=== PATIENT | male | born 1955 | race Two or more races ===

== ENCOUNTER → 2017-02-16 | Outpatient (REF) | payer OTHER ==
[2017-02-16 14:31] LABS: INR 0.98; PROTHROMBIN TIME 13.1 SECONDS (12.4-14.5)
[2017-02-16 15:50] LABS: ALKALINE PHOSPHATASE 150 U/L (45-117); ALT/SGPT 23 U/L (12-78); ANION GAP 17 MEQ/L (8-16); AST/SGOT 23 U/L (7-37); BILIRUBIN,TOTAL 0.2 MG/DL (0.2-1.0); BLOOD UREA NITROGEN 113 MG/DL (7-18); CALCIUM LEVEL 8.1 MG/DL (8.8-10.2); CARBON DIOXIDE LEVEL 20 MEQ/L (21-32); CHLORIDE LEVEL 105 MEQ/L (98-107); CHOLESTEROL LEVEL 291 MG/DL (<200); CREATININE FOR GFR 8.57 MG/DL (0.70-1.30); GLOMERULAR FILTRATION RATE 6.7 (>49); GLUCOSE, FASTING 136 MG/DL (80-110); HDL CHOLESTEROL 36 MG/DL (>40); NON-HDL-C 255 MG/DL; POTASSIUM SERUM 3.5 MEQ/L (3.5-5.1); SODIUM LEVEL 142 MEQ/L (136-145); TRIGLYCERIDES LEVEL 235 MG/DL (<150)
[2017-02-16 15:51] LABS: ALBUMIN 2.1 GM/DL (3.2-5.2); CHOLESTEROL RISK RATIO 8.083 (<5); TOTAL PROTEIN 6.3 GM/DL (6.4-8.2)
[2017-02-16 16:43] LABS: AMORPHOUS SEDIMENT SMALL (NEGATIVE); APPEARANCE, URINE HAZY (CLEAR); BACTERIA, URINE AUTO 1+ (NEGATIVE); BILIRUBIN, URINE AUTO NEGATIVE (NEGATIVE); BLOOD, URINE BLOOD 2+ (NEGATIVE); CALCIUM OXALATE CRYSTALS SMALL; COLOR, URINE YELLOW (YELLOW); GLUCOSE, URINE (UA) AUTO 3+ mg/dL (NEGATIVE); KETONE, URINE AUTO NEGATIVE (NEGATIVE); LEUKOCYTE ESTERASE, URINE AUTO NEGATIVE (NEGATIVE); MUCUS, URINE SMALL (NEGATIVE); NITRITE, URINE AUTO NEGATIVE (NEGATIVE); PROTEIN, URINE AUTO 3+ mg/dL (NEGATIVE); RBC, URINE AUTO 2 /HPF (0-3); SPECIFIC GRAVITY URINE AUTO 1.013 (1.002-1.035); SQUAMOUS EPITHELIAL CELL UR AU 0 /HPF (0-6); UROBILINOGEN, URINE AUTO 0.2 mg/dL (0.0-2.0); WBC, URINE AUTO 3 /HPF (0-3)
[2017-02-16 18:17] LABS: CHLAMYDIA DNA AMPLIFICATION NEGATIVE (NEGATIVE); GC DNA AMPLIFICATION NEGATIVE (NEGATIVE)
[2017-02-16 19:21] LABS: CREATININE, URINE 91.8 MG/DL; MAU/CREAT RATIO 7145.9 MCG/MG (0.0-30.0)
[2017-02-17 17:51] LABS: HEPATITIS B SURFACE ANTIBODY POSITIVE (POSITIVE)
[2017-02-17 18:06] LABS: HEPATITIS C VIRUS ABY INDEX 0.2 INDEX (<0.8)
[2017-02-18 14:10] LABS: QUANTIFERON GOLD TB Negative (Negative); TB Test (QFT) Antigen 0.06 IU/mL (.); TB Test (QFT) Antigen Minus Ni <0.01 IU/mL (.); TB Test (QFT) Mitogen 5.38 IU/mL (.); TB Test (QFT) Nil 0.07 IU/mL (.)
[2017-02-21 00:07] LABS: % CD8 Pos Lymph 40.5 % (12.0-35.5); %CD4 Pos Lymphs 39.1 % (30.8-58.5); ABS Eosinophils 0.2 x10E3/uL (0.0-0.4); ABS Lymphs 1.7 x10E3/uL (0.7-3.1); ABS Monocytes 0.5 x10E3/uL (0.1-0.9); ABS Neutophils 3.4 x10E3/uL (1.4-7.0); Abs CD4 Helper 665 /uL (359-1519); Abs CD8 Suppres 689 /uL (109-897); CD4/CD8 Ratio 0.97 (0.92-3.72); Eosinophils 3 % (Not Estab.); HCT 38.3 % (37.5-51.0); HEPATITIS A IgG TOTAL Positive (Negative); HEPATITIS B CORE ANTIBODY IGG Negative (Negative); HGB 13.6 g/dL (13.0-17.7); HIV-1 RNA PCR QUANT 2 LC550285 144860 copies/mL (.); HIV-1 RNA PCR QUANT 3 LC550285 5.161 (.); Immature Grans 0 % (Not Estab.); Lymphocytes 29 % (Not Estab.); MCH 29.9 pg (26.6-33.0); MCHC 35.5 g/dL (31.5-35.7); MCV 84 fL (79-97); Monocytes 9 % (Not Estab.); Neutrophils 58 % (Not Estab.); Platelets 273 x10E3/uL (150-379); RBC 4.55 x10E6/uL (4.14-5.80); RDW 13.7 % (12.3-15.4); WBC 5.8 x10E3/uL (3.4-10.8)
== END ==
LOC: M SFHCPLAZ 11:12
DX: B20 Human immunodeficiency virus [HIV] disease (principal); E10.22 Type 1 diabetes mellitus with diabetic chronic kidney disease; I48.3 Typical atrial flutter

== ENCOUNTER → 2017-02-20 | Outpatient (REF) | payer MEDICAID, SELFPAY ==
[2017-02-20 14:22] LABS: HEPATITIS B SURFACE ANTIBODY POSITIVE (POSITIVE)
[2017-02-20 14:29] LABS: HEPATITIS B SURFACE ANTIGEN NEGATIVE (NEGATIVE)
[2017-02-20 14:52] LABS: HEPATITIS C VIRUS ABY INDEX 0.2 INDEX (<0.8)
[2017-02-20 14:53] LABS: HEPATITIS B CORE ANTIBODY IGM NEGATIVE (NEGATIVE)
[2017-02-21 08:06] LABS: HEPATITIS B CORE ANTIBODY IGG Negative (Negative)
== END ==
LOC: M LAB REF 13:09
DX: N18.5 Chronic kidney disease, stage 5 (principal); E11.22 Type 2 diabetes mellitus with diabetic chronic kidney disease; N25.81 Secondary hyperparathyroidism of renal origin
CPT/HCPCS: 86706

== ENCOUNTER 2017-02-24 17:55 | Inpatient (IN) | payer MEDICAID, SELFPAY ==
[2017-02-24 19:17] LABS: KETONE, URINE AUTO RFX TRACE mg/dL (NEGATIVE); LEUKOCYTE ESTERASE UR AUTO RFX NEGATIVE (NEGATIVE); NITRITE, URINE AUTO RFX NEGATIVE (NEGATIVE); RBC, URINE AUTO RFX 8 /HPF (0-3); SPECIFIC GRAVITY UR AUTO RFX 1.015 (1.002-1.035); SQUAM EPITHELIAL CELL UR AURFX 0 /HPF (0-6); WBC, URINE AUTO RFX 4 /HPF (0-3)
[2017-02-24 19:25] LABS: BASO % 0.4 % (0.0-1.0); EOS # 0.1 10^3/uL (0.0-0.50); EOS % 0.6 % (0.0-3.0); HEMATOCRIT 42.5 % (42.0-52.0); HEMOGLOBIN 14.8 g/dl (14.0-18.0); IMMATURE GRANULOCYTE % 0.2 % (0-0); LYMPH % 12.3 % (24.0-44.0); MEAN CORPUSCULAR HEMOGLOBIN 29.2 pg (27.0-33.0); MEAN CORPUSCULAR HGB CONC 34.8 g/dl (32.0-36.5); MONO # 0.6 10^3/uL (0.0-0.8); MONO % 6.9 % (0.0-5.0); NEUTROPHILS # 6.7 10^3/uL (1.8-7.7); NEUTROPHILS % 79.6 % (36.0-66.0); PLATELET COUNT, AUTOMATED 300 10^3/uL (150-450); RED BLOOD COUNT 5.06 10^6/uL (4.30-6.10); RED CELL DISTRIBUTION WIDTH 13.2 % (11.5-14.5); WHITE BLOOD COUNT 8.5 10^3/uL (4.0-10.0)
[2017-02-24 19:35] LABS: INR 2.47; PROTHROMBIN TIME 27.7 SECONDS (12.4-14.5)
[2017-02-24 19:36] LABS: PARTIAL THROMBOPLASTIN TIME 50.3 SECONDS (26.8-37.9)
[2017-02-24 19:48] LABS: ALBUMIN 2.3 GM/DL (3.2-5.2); ALBUMIN/GLOBULIN RATIO 0.47 (1.00-1.93); ALKALINE PHOSPHATASE 143 U/L (45-117); ALT/SGPT 28 U/L (12-78); ANION GAP 13 MEQ/L (8-16); AST/SGOT 24 U/L (7-37); BILIRUBIN,DIRECT < 0.1 MG/DL (0.0-0.2); BILIRUBIN,TOTAL 0.3 MG/DL (0.2-1.0); BLOOD UREA NITROGEN 113 MG/DL (7-18); CALCIUM LEVEL 7.8 MG/DL (8.8-10.2); CARBON DIOXIDE LEVEL 23 MEQ/L (21-32); CHLORIDE LEVEL 104 MEQ/L (98-107); CK-MB VALUE MASS 15.2 NG/ML (0.0-3.6); CPK CREATINE PHOSPHOKINASE 303 U/L (39-308); CREATININE FOR GFR 8.88 MG/DL (0.70-1.30); GLOMERULAR FILTRATION RATE 6.5 (>49); GLUCOSE, FASTING 271 MG/DL (80-110); LIPASE 268 U/L (73-393); MAGNESIUM LEVEL 1.8 MG/DL (1.8-2.4); MB/CK RELATIVE INDEX 5.01 (< OR =4); PHOSPHORUS LEVEL 8.3 MG/DL (2.5-4.9); POTASSIUM SERUM 3.1 MEQ/L (3.5-5.1); SODIUM LEVEL 140 MEQ/L (136-145); TOTAL PROTEIN 7.2 GM/DL (6.4-8.2); TROPONIN I 0.05 NG/ML (< 0.10)
[2017-02-24] MEDS: ONDANSETRON 4MG/2ML VIAL (J2405) IV (20:13)
[2017-02-24] MEDS: MORPHINE 4 MG/ML 1ML VIAL (J2270) IV (20:34)
[2017-02-24] MEDS ORDERED: ONDANSETRON 4MG/2ML VIAL (J2405) IV (22:15)
[2017-02-24] MEDS ORDERED: GLUCOSE 4 GM CHEW TABLET PO (22:15)
[2017-02-24] MEDS ORDERED: BISACODYL 5 MG TAB PO (22:15)
[2017-02-24] MEDS ORDERED: COLCHICINE 0.6 MG TAB PO (22:15)
[2017-02-24] MEDS ORDERED: GLUCAGON FOR INJ 1 MG VIAL (J1610) SC (22:15)
[2017-02-25] MEDS: MORPHINE 2 MG/ML 1ML SYRINGE (J2270) IV ×6 (00:27→23:14)
[2017-02-25] MEDS: SENOKOT S TAB PO ×3 (00:57→21:28)
[2017-02-25 00:58] LABS: BEDSIDE GLUCOSE 127 MG/DL (80-115)
[2017-02-25] MEDS: amLODIPine 5 MG TAB PO ×2 (00:58→08:42)
[2017-02-25] MEDS: POTASSIUM CHLORIDE 10 MEQ SR TABLET PO ×2 (00:59→08:41)
[2017-02-25] MEDS: HumaLOG INSULIN (NovoLOG) PER UNIT SC ×4 (06:00→18:52)
[2017-02-25 06:20] LABS: BEDSIDE GLUCOSE 121 MG/DL (80-115)
[2017-02-25 07:18] LABS: BASO % 0.4 % (0.0-1.0); EOS # 0.2 10^3/uL (0.0-0.50); EOS % 2.8 % (0.0-3.0); HEMATOCRIT 34.6 % (42.0-52.0); IMMATURE GRANULOCYTE % 0.4 % (0-0); LYMPH # 1.9 10^3/uL (1.5-4.5); LYMPH % 24.6 % (24.0-44.0); MEAN CORPUSCULAR HEMOGLOBIN 29.4 pg (27.0-33.0); MEAN CORPUSCULAR VOLUME 84.2 fl (80.0-96.0); MONO # 0.7 10^3/uL (0.0-0.8); MONO % 9.1 % (0.0-5.0); NEUTROPHILS # 4.7 10^3/uL (1.8-7.7); NEUTROPHILS % 62.7 % (36.0-66.0); PLATELET COUNT, AUTOMATED 237 10^3/uL (150-450); RED BLOOD COUNT 4.11 10^6/uL (4.30-6.10); RED CELL DISTRIBUTION WIDTH 13.2 % (11.5-14.5); WHITE BLOOD COUNT 7.6 10^3/uL (4.0-10.0)
[2017-02-25 07:24] LABS: HEMOGLOBIN 12.1 g/dl (14.0-18.0)
[2017-02-25 07:28] LABS: INR 2.91; PROTHROMBIN TIME 31.7 SECONDS (12.4-14.5)
[2017-02-25 07:53] LABS: ANION GAP 15 MEQ/L (8-16); BLOOD UREA NITROGEN 113 MG/DL (7-18); CALCIUM LEVEL 7.5 MG/DL (8.8-10.2); CARBON DIOXIDE LEVEL 19 MEQ/L (21-32); CHLORIDE LEVEL 108 MEQ/L (98-107); CREATININE FOR GFR 8.75 MG/DL (0.70-1.30); GLOMERULAR FILTRATION RATE 6.6 (>49); GLUCOSE, FASTING 112 MG/DL (80-110); MAGNESIUM LEVEL 1.8 MG/DL (1.8-2.4); PHOSPHORUS LEVEL 8.2 MG/DL (2.5-4.9); POTASSIUM SERUM 3.1 MEQ/L (3.5-5.1); SODIUM LEVEL 142 MEQ/L (136-145)
[2017-02-25] MEDS: MULTIVITAMINS/MINERALS THERAP 1 TAB PO (08:42)
[2017-02-25] MEDS ORDERED: ALLOPURINOL 100 MG TAB PO (09:00)
[2017-02-25] MEDS: METOPROLOL SUCC (TopROL XL) 100MG *XL* TAB PO (09:00)
[2017-02-25] MEDS: ACETAMINOPHEN TAB 650MG DOSE (2X325MG) PO (11:38)
[2017-02-25 13:04] LABS: BEDSIDE GLUCOSE 101 MG/DL (80-115)
[2017-02-25] MEDS ORDERED: fentaNYL 100 MCG/2 ML INJECTION (J3010) As Ordered (15:34)
[2017-02-25] MEDS ORDERED: MIDAZOLAM INJ 2 MG/2 ML VIAL (J2250) As Ordered (15:34)
[2017-02-25] MEDS: HEPARIN SOD (PORCINE) 5000 UNITS/ML VIAL As Ordered (16:31)
[2017-02-25] MEDS: BUPIVACAINE HCL 0.5% 30 ML VIAL As Ordered (16:31)
[2017-02-25] MEDS: LIDOCAINE 1% SDV INJ 30 ML VIAL As Ordered (16:31)
[2017-02-25] MEDS ORDERED: PROPOFOL 200 MG/20 ML VIAL As Ordered (16:33)
[2017-02-25] MEDS ORDERED: ONDANSETRON 4MG/2ML VIAL (J2405) IV (17:30)
[2017-02-25] MEDS ORDERED: LR 1,000 ML IV (17:30)
[2017-02-25] MEDS ORDERED: NORCO, ANEXSIA 5/325MG TABLET (HYDROcodone/ACETAMINOPHEN) PO (17:30)
[2017-02-25] MEDS: FEBUXOSTAT 40 MG TABLET (ULORIC) PO (18:18)
[2017-02-25] MEDS: KCL 20MEQ in NS 1000ML 1,000 ML IV (18:19)
[2017-02-25 18:34] LABS: BEDSIDE GLUCOSE 122 MG/DL (80-115)
[2017-02-25 18:45] LABS: BEDSIDE GLUCOSE 76 MG/DL (80-115)
[2017-02-26 00:04] LABS: BEDSIDE GLUCOSE 68 MG/DL (80-115)
[2017-02-26] MEDS: DEXTROSE 50% 50 ML SYRINGE IV (00:22)
[2017-02-26] MEDS: KCL 20MEQ in NS 1000ML 1,000 ML IV ×2 (02:21→13:56)
[2017-02-26 02:30] LABS: BEDSIDE GLUCOSE 93 MG/DL (80-115)
[2017-02-26] MEDS: MORPHINE 2 MG/ML 1ML SYRINGE (J2270) IV ×3 (03:38→20:54)
[2017-02-26] MEDS: HumaLOG INSULIN (NovoLOG) PER UNIT SC ×5 (06:00→18:00)
[2017-02-26 06:09] LABS: BASO % 0.4 % (0.0-1.0); EOS # 0.1 10^3/uL (0.0-0.50); EOS % 1.3 % (0.0-3.0); HEMATOCRIT 34.6 % (42.0-52.0); HEMOGLOBIN 11.8 g/dl (14.0-18.0); IMMATURE GRANULOCYTE % 0.4 % (0-0); LYMPH # 1.5 10^3/uL (1.5-4.5); LYMPH % 20.8 % (24.0-44.0); MEAN CORPUSCULAR HEMOGLOBIN 29.6 pg (27.0-33.0); MEAN CORPUSCULAR HGB CONC 34.1 g/dl (32.0-36.5); MEAN CORPUSCULAR VOLUME 86.9 fl (80.0-96.0); MONO # 0.6 10^3/uL (0.0-0.8); MONO % 8.7 % (0.0-5.0); NEUTROPHILS # 4.8 10^3/uL (1.8-7.7); NEUTROPHILS % 68.4 % (36.0-66.0); PLATELET COUNT, AUTOMATED 205 10^3/uL (150-450); RED BLOOD COUNT 3.98 10^6/uL (4.30-6.10); RED CELL DISTRIBUTION WIDTH 13.5 % (11.5-14.5)
[2017-02-26 06:19] LABS: INR 2.78; PROTHROMBIN TIME 30.5 SECONDS (12.4-14.5)
[2017-02-26 06:26] LABS: ANION GAP 14 MEQ/L (8-16); BLOOD UREA NITROGEN 116 MG/DL (7-18); CALCIUM LEVEL 7.5 MG/DL (8.8-10.2); CARBON DIOXIDE LEVEL 17 MEQ/L (21-32); CHLORIDE LEVEL 111 MEQ/L (98-107); CREATININE FOR GFR 9.35 MG/DL (0.70-1.30); GLOMERULAR FILTRATION RATE 6.1 (>49); GLUCOSE, FASTING 71 MG/DL (80-110); MAGNESIUM LEVEL 1.8 MG/DL (1.8-2.4); PHOSPHORUS LEVEL 8.3 MG/DL (2.5-4.9); POTASSIUM SERUM 3.6 MEQ/L (3.5-5.1); SODIUM LEVEL 142 MEQ/L (136-145)
[2017-02-26 06:56] LABS: BEDSIDE GLUCOSE 106 MG/DL (80-115)
[2017-02-26] MEDS: FEBUXOSTAT 40 MG TABLET (ULORIC) PO (08:49)
[2017-02-26] MEDS: SENOKOT S TAB PO ×2 (08:49→20:55)
[2017-02-26] MEDS: MULTIVITAMINS/MINERALS THERAP 1 TAB PO (08:50)
[2017-02-26] MEDS: METOPROLOL SUCC (TopROL XL) 100MG *XL* TAB PO (08:50)
[2017-02-26] MEDS: amLODIPine 5 MG TAB PO (08:51)
[2017-02-26 12:14] LABS: BEDSIDE GLUCOSE 89 MG/DL (80-115)
[2017-02-26 17:41] LABS: BEDSIDE GLUCOSE 70 MG/DL (80-115)
[2017-02-26] MEDS: KCL 20MEQ IN D5/0.45NS 1000ML 1,000 ML IV ×2 (18:00→20:54)
[2017-02-26] MEDS: WARFARIN SOD 5 MG TAB PO (18:19)
[2017-02-26 23:43] LABS: BEDSIDE GLUCOSE 79 MG/DL (80-115)
[2017-02-27] MEDS: MORPHINE 2 MG/ML 1ML SYRINGE (J2270) IV ×2 (03:12→23:11)
[2017-02-27] MEDS: HumaLOG INSULIN (NovoLOG) PER UNIT SC ×4 (06:00→18:00)
[2017-02-27 06:11] LABS: BEDSIDE GLUCOSE 88 MG/DL (80-115)
[2017-02-27] MEDS: FEBUXOSTAT 40 MG TABLET (ULORIC) PO (06:19)
[2017-02-27] MEDS: amLODIPine 5 MG TAB PO (06:20)
[2017-02-27] MEDS: SENOKOT S TAB PO ×2 (06:20→20:33)
[2017-02-27] MEDS: MULTIVITAMINS/MINERALS THERAP 1 TAB PO (06:20)
[2017-02-27] MEDS: METOPROLOL SUCC (TopROL XL) 100MG *XL* TAB PO (06:21)
[2017-02-27 07:02] LABS: BASO % 0.3 % (0.0-1.0); EOS # 0.1 10^3/uL (0.0-0.50); EOS % 2.2 % (0.0-3.0); HEMOGLOBIN 12.3 g/dl (14.0-18.0); IMMATURE GRANULOCYTE % 0.3 % (0-0); LYMPH # 1.3 10^3/uL (1.5-4.5); LYMPH % 19.4 % (24.0-44.0); MEAN CORPUSCULAR HEMOGLOBIN 29.6 pg (27.0-33.0); MEAN CORPUSCULAR HGB CONC 34.2 g/dl (32.0-36.5); MEAN CORPUSCULAR VOLUME 86.5 fl (80.0-96.0); MONO # 0.8 10^3/uL (0.0-0.8); MONO % 12.9 % (0.0-5.0); NEUTROPHILS # 4.2 10^3/uL (1.8-7.7); NEUTROPHILS % 64.9 % (36.0-66.0); PLATELET COUNT, AUTOMATED 214 10^3/uL (150-450); RED BLOOD COUNT 4.16 10^6/uL (4.30-6.10); RED CELL DISTRIBUTION WIDTH 13.8 % (11.5-14.5); WHITE BLOOD COUNT 6.4 10^3/uL (4.0-10.0)
[2017-02-27 07:15] LABS: INR 2.47; PROTHROMBIN TIME 27.7 SECONDS (12.4-14.5)
[2017-02-27 07:30] LABS: ANION GAP 15 MEQ/L (8-16); BLOOD UREA NITROGEN 115 MG/DL (7-18); CALCIUM LEVEL 7.9 MG/DL (8.8-10.2); CARBON DIOXIDE LEVEL 18 MEQ/L (21-32); CHLORIDE LEVEL 113 MEQ/L (98-107); GLOMERULAR FILTRATION RATE 5.5 (>49); GLUCOSE, FASTING 88 MG/DL (80-110); PHOSPHORUS LEVEL 8.5 MG/DL (2.5-4.9); POTASSIUM SERUM 3.8 MEQ/L (3.5-5.1); SODIUM LEVEL 146 MEQ/L (136-145)
[2017-02-27] MEDS: KCL 20MEQ IN D5/0.45NS 1000ML 1,000 ML IV (08:33)
[2017-02-27] MEDS: HEPARIN 1,000 UNITS/ML 10ML VIAL (FOR RADIOLOGY& DIALYSIS ONLY) IV (12:15)
[2017-02-27 13:04] LABS: HEPATITIS B SURFACE ANTIBODY POSITIVE (POSITIVE)
[2017-02-27 13:15] LABS: HEPATITIS B SURFACE ANTIGEN NEGATIVE (NEGATIVE)
[2017-02-27 13:41] LABS: BEDSIDE GLUCOSE 97 MG/DL (80-115)
[2017-02-27 13:43] LABS: HEPATITIS B CORE ANTIBODY IGM NEGATIVE (NEGATIVE); HEPATITIS C VIRUS ABY INDEX < 0.0 INDEX (<0.8)
[2017-02-27 18:09] LABS: BEDSIDE GLUCOSE 109 MG/DL (80-115)
[2017-02-27] MEDS: WARFARIN SOD 5 MG TAB PO (18:20)
[2017-02-28 00:31] LABS: BEDSIDE GLUCOSE 120 MG/DL (80-115)
[2017-02-28] MEDS: HumaLOG INSULIN (NovoLOG) PER UNIT SC ×5 (06:00→23:59)
[2017-02-28 06:02] LABS: BEDSIDE GLUCOSE 123 MG/DL (80-115)
[2017-02-28 06:55] LABS: BASO % 0.5 % (0.0-1.0); EOS # 0.1 10^3/uL (0.0-0.50); EOS % 0.9 % (0.0-3.0); HEMATOCRIT 35.5 % (42.0-52.0); HEMOGLOBIN 12.2 g/dl (14.0-18.0); IMMATURE GRANULOCYTE % 0.2 % (0-0); LYMPH % 14.7 % (24.0-44.0); MEAN CORPUSCULAR HEMOGLOBIN 29.6 pg (27.0-33.0); MEAN CORPUSCULAR HGB CONC 34.4 g/dl (32.0-36.5); MEAN CORPUSCULAR VOLUME 86.2 fl (80.0-96.0); MONO % 14.8 % (0.0-5.0); NEUTROPHILS # 4.5 10^3/uL (1.8-7.7); NEUTROPHILS % 68.9 % (36.0-66.0); PLATELET COUNT, AUTOMATED 188 10^3/uL (150-450); RED BLOOD COUNT 4.12 10^6/uL (4.30-6.10); RED CELL DISTRIBUTION WIDTH 13.7 % (11.5-14.5); WHITE BLOOD COUNT 6.5 10^3/uL (4.0-10.0)
[2017-02-28 07:03] LABS: ANION GAP 10 MEQ/L (8-16); BLOOD UREA NITROGEN 74 MG/DL (7-18); CALCIUM LEVEL 7.6 MG/DL (8.8-10.2); CARBON DIOXIDE LEVEL 23 MEQ/L (21-32); CHLORIDE LEVEL 110 MEQ/L (98-107); CREATININE FOR GFR 7.88 MG/DL (0.70-1.30); GLOMERULAR FILTRATION RATE 7.4 (>49); GLUCOSE, FASTING 134 MG/DL (70-100); MAGNESIUM LEVEL 1.8 MG/DL (1.8-2.4); PHOSPHORUS LEVEL 6.1 MG/DL (2.5-4.9); POTASSIUM SERUM 3.5 MEQ/L (3.5-5.1); SODIUM LEVEL 143 MEQ/L (136-145)
[2017-02-28 07:05] LABS: INR 2.31; PROTHROMBIN TIME 26.3 SECONDS (12.4-14.5)
[2017-02-28 08:17] LABS: HEPATITIS B CORE ANTIBODY IGG Negative (Negative)
[2017-02-28] MEDS: FEBUXOSTAT 40 MG TABLET (ULORIC) PO (09:26)
[2017-02-28] MEDS: METOPROLOL SUCC (TopROL XL) 100MG *XL* TAB PO (09:26)
[2017-02-28] MEDS: amLODIPine 5 MG TAB PO (09:27)
[2017-02-28] MEDS: KCL 20MEQ IN D5/0.45NS 1000ML 1,000 ML IV ×2 (12:42→20:00)
[2017-02-28 13:23] LABS: BEDSIDE GLUCOSE 123 MG/DL (80-115)
[2017-02-28] MEDS: HEPARIN 1,000 UNITS/ML 10ML VIAL (FOR RADIOLOGY& DIALYSIS ONLY) IV (14:30)
[2017-02-28 15:09] LABS: ABO/RH TYPE(VISION) 1 1
[2017-02-28] MEDS: MORPHINE 2 MG/ML 1ML SYRINGE (J2270) IV (18:01)
[2017-02-28 18:23] LABS: INR 1.66; PROTHROMBIN TIME 20.1 SECONDS (12.4-14.5)
[2017-02-28 18:33] LABS: BEDSIDE GLUCOSE 101 MG/DL (80-115)
[2017-02-28] MEDS ORDERED: ERTAPENEM 1 GM INJ (INVanz) (J1335) As Ordered (19:35)
[2017-02-28] MEDS: BUPIVACAINE HCL 0.25% 30 ML VIAL As Ordered (19:38)
[2017-02-28] MEDS ORDERED: GLYCOPYRROLATE INJ 0.2 MG/ML 2 ML VIAL As Ordered ×2 (21:29→21:30)
[2017-02-28] MEDS ORDERED: NEOSTIGMINE 10 MG/10 ML VIAL (J2710) As Ordered (21:30)
[2017-02-28] MEDS ORDERED: PROPOFOL 200 MG/20 ML VIAL As Ordered (21:33)
[2017-02-28] MEDS ORDERED: ePHEDrine INJ 50 MG/ML VIAL As Ordered (21:33)
[2017-02-28] MEDS ORDERED: dexameTHASONE 4 MG/ML 1ML VIAL (J1100) As Ordered (21:33)
[2017-02-28] MEDS ORDERED: fentaNYL 250 MCG/5 ML INJECTION (J3010) As Ordered (21:33)
[2017-02-28] MEDS ORDERED: MIDAZOLAM INJ 2 MG/2 ML VIAL (J2250) As Ordered (21:33)
[2017-02-28] MEDS ORDERED: LIDOCAINE 2% INJ 100 MG/5 ML SDV (FOR ANES.) As Ordered (21:33)
[2017-02-28] MEDS ORDERED: PHENYLEPHRINE INJ 10MG/ML VIAL (J2370) As Ordered (21:34)
[2017-02-28] MEDS ORDERED: ESMOLOL INJ 100MG/10ML VIAL As Ordered (21:43)
[2017-02-28] MEDS ORDERED: NORCO, ANEXSIA 5/325MG TABLET (HYDROcodone/ACETAMINOPHEN) PO (22:00)
[2017-02-28] MEDS ORDERED: ONDANSETRON 4MG/2ML VIAL (J2405) IV (22:15)
[2017-02-28] MEDS ORDERED: fentaNYL 100 MCG/2 ML INJECTION (J3010) IV (22:15)
[2017-02-28] MEDS ORDERED: KCL 20MEQ IN D5/.45NACL 1000ML As Ordered (23:01)
[2017-02-28 23:13] LABS: BEDSIDE GLUCOSE 110 MG/DL (80-115)
[2017-02-28 23:58] LABS: BEDSIDE GLUCOSE 116 MG/DL (80-115)
[2017-03-01] MEDS: HumaLOG INSULIN (NovoLOG) PER UNIT SC ×4 (06:04→21:19)
[2017-03-01 06:09] LABS: BEDSIDE GLUCOSE 183 MG/DL (80-115)
[2017-03-01 07:10] LABS: BASO % 0.2 % (0.0-1.0); HEMATOCRIT 34.3 % (42.0-52.0); HEMOGLOBIN 11.5 g/dl (14.0-18.0); IMMATURE GRANULOCYTE % 0.2 % (0-0); LYMPH # 0.4 10^3/uL (1.5-4.5); LYMPH % 9.4 % (24.0-44.0); MEAN CORPUSCULAR HEMOGLOBIN 29.5 pg (27.0-33.0); MEAN CORPUSCULAR HGB CONC 33.5 g/dl (32.0-36.5); MEAN CORPUSCULAR VOLUME 87.9 fl (80.0-96.0); MONO # 0.2 10^3/uL (0.0-0.8); MONO % 3.7 % (0.0-5.0); NEUTROPHILS # 3.8 10^3/uL (1.8-7.7); NEUTROPHILS % 86.5 % (36.0-66.0); PLATELET COUNT, AUTOMATED 182 10^3/uL (150-450); RED CELL DISTRIBUTION WIDTH 13.5 % (11.5-14.5); WHITE BLOOD COUNT 4.4 10^3/uL (4.0-10.0)
[2017-03-01 07:22] LABS: INR 1.71; PROTHROMBIN TIME 20.6 SECONDS (12.4-14.5)
[2017-03-01 07:29] LABS: ANION GAP 11 MEQ/L (8-16); BLOOD UREA NITROGEN 48 MG/DL (7-18); CALCIUM LEVEL 8.1 MG/DL (8.8-10.2); CARBON DIOXIDE LEVEL 22 MEQ/L (21-32); CHLORIDE LEVEL 108 MEQ/L (98-107); CREATININE FOR GFR 5.77 MG/DL (0.70-1.30); GLOMERULAR FILTRATION RATE 10.6 (>49); GLUCOSE, FASTING 193 MG/DL (70-100); MAGNESIUM LEVEL 1.9 MG/DL (1.8-2.4); PHOSPHORUS LEVEL 6.9 MG/DL (2.5-4.9); SODIUM LEVEL 141 MEQ/L (136-145)
[2017-03-01] MEDS: FEBUXOSTAT 40 MG TABLET (ULORIC) PO (08:57)
[2017-03-01] MEDS: amLODIPine 5 MG TAB PO (08:58)
[2017-03-01] MEDS: METOPROLOL SUCC (TopROL XL) 100MG *XL* TAB PO (08:58)
[2017-03-01 12:02] LABS: BEDSIDE GLUCOSE 276 MG/DL (80-115)
[2017-03-01 16:45] LABS: BEDSIDE GLUCOSE 220 MG/DL (80-115)
[2017-03-01] MEDS: WARFARIN SOD 3 MG TAB PO (17:10)
[2017-03-01 20:41] LABS: BEDSIDE GLUCOSE 280 MG/DL (80-115)
[2017-03-02 06:11] LABS: BEDSIDE GLUCOSE 215 MG/DL (80-115)
[2017-03-02] MEDS: FEBUXOSTAT 40 MG TABLET (ULORIC) PO (06:22)
[2017-03-02] MEDS: HumaLOG INSULIN (NovoLOG) PER UNIT SC ×4 (07:30→21:00)
[2017-03-02] MEDS: METOPROLOL SUCC (TopROL XL) 100MG *XL* TAB PO (07:44)
[2017-03-02] MEDS: amLODIPine 5 MG TAB PO (08:16)
[2017-03-02 11:20] LABS: BASO % 0.2 % (0.0-1.0); EOS # 0.2 10^3/uL (0.0-0.50); EOS % 2.7 % (0.0-3.0); HEMATOCRIT 32.3 % (42.0-52.0); HEMOGLOBIN 10.9 g/dl (14.0-18.0); IMMATURE GRANULOCYTE % 0.2 % (0-0); LYMPH # 1.3 10^3/uL (1.5-4.5); LYMPH % 21.8 % (24.0-44.0); MEAN CORPUSCULAR HEMOGLOBIN 29.2 pg (27.0-33.0); MEAN CORPUSCULAR HGB CONC 33.7 g/dl (32.0-36.5); MEAN CORPUSCULAR VOLUME 86.6 fl (80.0-96.0); MONO # 0.8 10^3/uL (0.0-0.8); MONO % 13.3 % (0.0-5.0); NEUTROPHILS # 3.7 10^3/uL (1.8-7.7); NEUTROPHILS % 61.8 % (36.0-66.0); PLATELET COUNT, AUTOMATED 198 10^3/uL (150-450); RED BLOOD COUNT 3.73 10^6/uL (4.30-6.10); RED CELL DISTRIBUTION WIDTH 13.3 % (11.5-14.5); WHITE BLOOD COUNT 5.9 10^3/uL (4.0-10.0)
[2017-03-02 11:33] LABS: INR 1.87; PROTHROMBIN TIME 22.1 SECONDS (12.4-14.5)
[2017-03-02 11:42] LABS: ANION GAP 7 MEQ/L (8-16); BLOOD UREA NITROGEN 40 MG/DL (7-18); CALCIUM LEVEL 8.4 MG/DL (8.8-10.2); CARBON DIOXIDE LEVEL 30 MEQ/L (21-32); CHLORIDE LEVEL 103 MEQ/L (98-107); CREATININE FOR GFR 3.96 MG/DL (0.70-1.30); GLOMERULAR FILTRATION RATE 16.4 (>49); GLUCOSE, FASTING 139 MG/DL (70-100); MAGNESIUM LEVEL 1.9 MG/DL (1.8-2.4); POTASSIUM SERUM 3.5 MEQ/L (3.5-5.1); SODIUM LEVEL 140 MEQ/L (136-145)
[2017-03-02] MEDS: HEPARIN 1,000 UNITS/ML 10ML VIAL (FOR RADIOLOGY& DIALYSIS ONLY) XX (11:45)
[2017-03-02] MEDS: HEPARIN 1,000 UNITS/ML 10ML VIAL (FOR RADIOLOGY& DIALYSIS ONLY) IV (11:45)
[2017-03-02 13:28] LABS: BEDSIDE GLUCOSE 162 MG/DL (80-115)
[2017-03-02] MEDS: WARFARIN SOD 5 MG TAB PO (16:45)
[2017-03-02 16:50] LABS: BEDSIDE GLUCOSE 173 MG/DL (80-115)
[2017-03-02 23:00] LABS: BEDSIDE GLUCOSE 149 MG/DL (80-115)
[2017-03-03 07:22] LABS: BASO % 0.2 % (0.0-1.0); EOS # 0.2 10^3/uL (0.0-0.50); EOS % 3.1 % (0.0-3.0); HEMATOCRIT 31.1 % (42.0-52.0); HEMOGLOBIN 10.3 g/dl (14.0-18.0); IMMATURE GRANULOCYTE % 0.3 % (0-0); LYMPH # 1.3 10^3/uL (1.5-4.5); LYMPH % 22.9 % (24.0-44.0); MEAN CORPUSCULAR HEMOGLOBIN 29.1 pg (27.0-33.0); MEAN CORPUSCULAR HGB CONC 33.1 g/dl (32.0-36.5); MEAN CORPUSCULAR VOLUME 87.9 fl (80.0-96.0); MONO # 0.8 10^3/uL (0.0-0.8); MONO % 14.3 % (0.0-5.0); NEUTROPHILS # 3.4 10^3/uL (1.8-7.7); NEUTROPHILS % 59.2 % (36.0-66.0); PLATELET COUNT, AUTOMATED 185 10^3/uL (150-450); RED BLOOD COUNT 3.54 10^6/uL (4.30-6.10); RED CELL DISTRIBUTION WIDTH 13.2 % (11.5-14.5); WHITE BLOOD COUNT 5.8 10^3/uL (4.0-10.0)
[2017-03-03 07:32] LABS: ANION GAP 7 MEQ/L (8-16); BLOOD UREA NITROGEN 46 MG/DL (7-18); CALCIUM LEVEL 7.6 MG/DL (8.8-10.2); CARBON DIOXIDE LEVEL 26 MEQ/L (21-32); CHLORIDE LEVEL 106 MEQ/L (98-107); CREATININE FOR GFR 5.29 MG/DL (0.70-1.30); GLOMERULAR FILTRATION RATE 11.8 (>49); GLUCOSE, FASTING 156 MG/DL (70-100); INR 2.38; MAGNESIUM LEVEL 1.8 MG/DL (1.8-2.4); PHOSPHORUS LEVEL 4.2 MG/DL (2.5-4.9); POTASSIUM SERUM 3.5 MEQ/L (3.5-5.1); PROTHROMBIN TIME 26.9 SECONDS (12.4-14.5); SODIUM LEVEL 139 MEQ/L (136-145)
[2017-03-03] MEDS: HumaLOG INSULIN (NovoLOG) PER UNIT SC ×4 (08:11→21:00)
[2017-03-03] MEDS: FEBUXOSTAT 40 MG TABLET (ULORIC) PO (08:12)
[2017-03-03] MEDS: METOPROLOL SUCC (TopROL XL) 100MG *XL* TAB PO (08:12)
[2017-03-03] MEDS: amLODIPine 5 MG TAB PO (08:12)
[2017-03-03 11:45] LABS: BEDSIDE GLUCOSE 120 MG/DL (80-115)
[2017-03-03 16:25] LABS: BEDSIDE GLUCOSE 119 MG/DL (80-115)
[2017-03-03] MEDS: WARFARIN SOD 5 MG TAB PO (17:36)
[2017-03-03] MEDS ORDERED: DARBEPOETIN 100 MCG/0.5 ML *DIALYSIS* SYRINGE (J0882) IV (18:45)
[2017-03-03 20:48] LABS: BEDSIDE GLUCOSE 198 MG/DL (80-115)
[2017-03-04 05:33] LABS: BEDSIDE GLUCOSE 132 MG/DL (80-115)
[2017-03-04] MEDS: amLODIPine 5 MG TAB PO (06:15)
[2017-03-04] MEDS: FEBUXOSTAT 40 MG TABLET (ULORIC) PO (06:15)
[2017-03-04] MEDS: METOPROLOL SUCC (TopROL XL) 100MG *XL* TAB PO (06:16)
[2017-03-04] MEDS: HumaLOG INSULIN (NovoLOG) PER UNIT SC ×4 (07:30→20:45)
[2017-03-04 08:31] LABS: MEAN CORPUSCULAR HEMOGLOBIN 29.2 pg (27.0-33.0); MEAN CORPUSCULAR HGB CONC 33.3 g/dl (32.0-36.5); MEAN CORPUSCULAR VOLUME 87.5 fl (80.0-96.0); PLATELET COUNT, AUTOMATED 188 10^3/uL (150-450); RED BLOOD COUNT 3.77 10^6/uL (4.30-6.10)
[2017-03-04 08:52] LABS: ANION GAP 10 MEQ/L (8-16); BLOOD UREA NITROGEN 62 MG/DL (7-18); CALCIUM LEVEL 7.5 MG/DL (8.8-10.2); CARBON DIOXIDE LEVEL 24 MEQ/L (21-32); CHLORIDE LEVEL 104 MEQ/L (98-107); CREATININE FOR GFR 6.43 MG/DL (0.70-1.30); GLOMERULAR FILTRATION RATE 9.4 (>49); GLUCOSE, FASTING 137 MG/DL (70-100); MAGNESIUM LEVEL 1.8 MG/DL (1.8-2.4); POTASSIUM SERUM 3.7 MEQ/L (3.5-5.1); SODIUM LEVEL 138 MEQ/L (136-145)
[2017-03-04 08:56] LABS: INR 2.14; PROTHROMBIN TIME 24.7 SECONDS (12.4-14.5)
[2017-03-04] MEDS: HEPARIN 1,000 UNITS/ML 10ML VIAL (FOR RADIOLOGY& DIALYSIS ONLY) IV (10:30)
[2017-03-04 13:00] LABS: BEDSIDE GLUCOSE 132 MG/DL (80-115)
[2017-03-04] MEDS: WARFARIN SOD 5 MG TAB PO (16:42)
[2017-03-04 17:14] LABS: BEDSIDE GLUCOSE 180 MG/DL (80-115)
[2017-03-04 20:41] LABS: BEDSIDE GLUCOSE 172 MG/DL (80-115)
[2017-03-05 05:38] LABS: HEMATOCRIT 32.7 % (42.0-52.0); MEAN CORPUSCULAR HEMOGLOBIN 29.1 pg (27.0-33.0); MEAN CORPUSCULAR HGB CONC 33.6 g/dl (32.0-36.5); MEAN CORPUSCULAR VOLUME 86.5 fl (80.0-96.0); PLATELET COUNT, AUTOMATED 193 10^3/uL (150-450); RED BLOOD COUNT 3.78 10^6/uL (4.30-6.10); RED CELL DISTRIBUTION WIDTH 12.9 % (11.5-14.5); WHITE BLOOD COUNT 7.3 10^3/uL (4.0-10.0)
[2017-03-05 05:51] LABS: INR 2.23; PROTHROMBIN TIME 25.5 SECONDS (12.4-14.5)
[2017-03-05 05:58] LABS: ANION GAP 8 MEQ/L (8-16); BLOOD UREA NITROGEN 39 MG/DL (7-18); CALCIUM LEVEL 7.6 MG/DL (8.8-10.2); CARBON DIOXIDE LEVEL 26 MEQ/L (21-32); CHLORIDE LEVEL 106 MEQ/L (98-107); CREATININE FOR GFR 4.68 MG/DL (0.70-1.30); GLOMERULAR FILTRATION RATE 13.5 (>49); GLUCOSE, FASTING 141 MG/DL (70-100); MAGNESIUM LEVEL 1.9 MG/DL (1.8-2.4); POTASSIUM SERUM 3.6 MEQ/L (3.5-5.1); SODIUM LEVEL 140 MEQ/L (136-145)
[2017-03-05] MEDS: METOPROLOL SUCC (TopROL XL) 100MG *XL* TAB PO (08:03)
[2017-03-05] MEDS: HumaLOG INSULIN (NovoLOG) PER UNIT SC ×4 (08:03→21:09)
[2017-03-05] MEDS: FEBUXOSTAT 40 MG TABLET (ULORIC) PO (08:03)
[2017-03-05] MEDS: amLODIPine 10 MG TAB PO (08:04)
[2017-03-05] MEDS: LISINOPRIL 10 MG TAB PO ×2 (08:04→21:09)
[2017-03-05] MEDS: WARFARIN SOD 5 MG TAB PO (17:32)
[2017-03-05 20:52] LABS: BEDSIDE GLUCOSE 271 MG/DL (80-115)
[2017-03-06 06:08] LABS: HEMATOCRIT 30.4 % (42.0-52.0); HEMOGLOBIN 10.2 g/dl (14.0-18.0); MEAN CORPUSCULAR HEMOGLOBIN 29.6 pg (27.0-33.0); MEAN CORPUSCULAR HGB CONC 33.6 g/dl (32.0-36.5); MEAN CORPUSCULAR VOLUME 88.1 fl (80.0-96.0); PLATELET COUNT, AUTOMATED 172 10^3/uL (150-450); RED BLOOD COUNT 3.45 10^6/uL (4.30-6.10); RED CELL DISTRIBUTION WIDTH 12.9 % (11.5-14.5); WHITE BLOOD COUNT 8.3 10^3/uL (4.0-10.0)
[2017-03-06 06:16] LABS: INR 2.41; PROTHROMBIN TIME 27.2 SECONDS (12.4-14.5)
[2017-03-06 06:28] LABS: ANION GAP 10 MEQ/L (8-16); BLOOD UREA NITROGEN 55 MG/DL (7-18); CALCIUM LEVEL 7.6 MG/DL (8.8-10.2); CARBON DIOXIDE LEVEL 23 MEQ/L (21-32); CHLORIDE LEVEL 106 MEQ/L (98-107); CREATININE FOR GFR 5.84 MG/DL (0.70-1.30); GLOMERULAR FILTRATION RATE 10.5 (>49); GLUCOSE, FASTING 188 MG/DL (70-100); MAGNESIUM LEVEL 1.6 MG/DL (1.8-2.4); POTASSIUM SERUM 3.5 MEQ/L (3.5-5.1); SODIUM LEVEL 139 MEQ/L (136-145)
[2017-03-06] MEDS: LISINOPRIL 10 MG TAB PO ×2 (09:10→20:43)
[2017-03-06] MEDS: FEBUXOSTAT 40 MG TABLET (ULORIC) PO (09:10)
[2017-03-06] MEDS: METOPROLOL SUCC (TopROL XL) 100MG *XL* TAB PO (09:10)
[2017-03-06] MEDS: amLODIPine 10 MG TAB PO (09:10)
[2017-03-06] MEDS: HumaLOG INSULIN (NovoLOG) PER UNIT SC ×4 (09:11→20:30)
[2017-03-06 11:45] LABS: BEDSIDE GLUCOSE 211 MG/DL (80-115)
[2017-03-06 11:45] LABS: BEDSIDE GLUCOSE 139 MG/DL (80-115)
[2017-03-06 14:54] LABS: BEDSIDE GLUCOSE 174 MG/DL (80-115)
[2017-03-06 16:36] LABS: BEDSIDE GLUCOSE 142 MG/DL (80-115)
[2017-03-06] MEDS: WARFARIN SOD 5 MG TAB PO (17:11)
[2017-03-06 20:14] LABS: BEDSIDE GLUCOSE 195 MG/DL (80-115)
[2017-03-07] MEDS: FEBUXOSTAT 40 MG TABLET (ULORIC) PO (06:31)
[2017-03-07] MEDS: METOPROLOL SUCC (TopROL XL) 100MG *XL* TAB PO (06:31)
[2017-03-07] MEDS: LISINOPRIL 10 MG TAB PO (06:32)
[2017-03-07 06:33] LABS: BEDSIDE GLUCOSE 137 MG/DL (80-115)
[2017-03-07] MEDS: amLODIPine 10 MG TAB PO (06:33)
[2017-03-07 06:42] LABS: HEMATOCRIT 30.6 % (42.0-52.0); HEMOGLOBIN 10.3 g/dl (14.0-18.0); MEAN CORPUSCULAR HEMOGLOBIN 29.1 pg (27.0-33.0); MEAN CORPUSCULAR HGB CONC 33.7 g/dl (32.0-36.5); MEAN CORPUSCULAR VOLUME 86.4 fl (80.0-96.0); PLATELET COUNT, AUTOMATED 201 10^3/uL (150-450); RED BLOOD COUNT 3.54 10^6/uL (4.30-6.10)
[2017-03-07 06:49] LABS: ANION GAP 12 MEQ/L (8-16); BLOOD UREA NITROGEN 67 MG/DL (7-18); CALCIUM LEVEL 8.2 MG/DL (8.8-10.2); CARBON DIOXIDE LEVEL 21 MEQ/L (21-32); CHLORIDE LEVEL 106 MEQ/L (98-107); CREATININE FOR GFR 6.87 MG/DL (0.70-1.30); GLOMERULAR FILTRATION RATE 8.7 (>49); GLUCOSE, FASTING 134 MG/DL (70-100); MAGNESIUM LEVEL 1.8 MG/DL (1.8-2.4); POTASSIUM SERUM 3.9 MEQ/L (3.5-5.1); SODIUM LEVEL 139 MEQ/L (136-145)
[2017-03-07 06:58] LABS: INR 2.49; PROTHROMBIN TIME 27.9 SECONDS (12.4-14.5)
[2017-03-07] MEDS: HumaLOG INSULIN (NovoLOG) PER UNIT SC ×4 (07:05→21:00)
[2017-03-07] MEDS: ALLOPURINOL 100 MG TAB PO ×2 (07:09→07:15)
[2017-03-07 11:22] LABS: URIC ACID 3.1 MG/DL (3.5-7.2)
[2017-03-07 17:12] LABS: BEDSIDE GLUCOSE 304 MG/DL (80-115)
[2017-03-07] MEDS: WARFARIN SOD 5 MG TAB PO (17:16)
[2017-03-07 20:53] LABS: BEDSIDE GLUCOSE 217 MG/DL (80-115)
[2017-03-07] MEDS: LISINOPRIL 20 MG TAB PO (22:30)
[2017-03-08 06:30] LABS: HEMATOCRIT 29.3 % (42.0-52.0); HEMOGLOBIN 9.8 g/dl (14.0-18.0); MEAN CORPUSCULAR HEMOGLOBIN 29.3 pg (27.0-33.0); MEAN CORPUSCULAR HGB CONC 33.4 g/dl (32.0-36.5); MEAN CORPUSCULAR VOLUME 87.7 fl (80.0-96.0); PLATELET COUNT, AUTOMATED 187 10^3/uL (150-450); RED BLOOD COUNT 3.34 10^6/uL (4.30-6.10); RED CELL DISTRIBUTION WIDTH 12.9 % (11.5-14.5); WHITE BLOOD COUNT 7.4 10^3/uL (4.0-10.0)
[2017-03-08 06:37] LABS: INR 2.46; PROTHROMBIN TIME 27.7 SECONDS (12.4-14.5)
[2017-03-08 06:47] LABS: ANION GAP 5 MEQ/L (8-16); BLOOD UREA NITROGEN 44 MG/DL (7-18); CALCIUM LEVEL 7.8 MG/DL (8.8-10.2); CARBON DIOXIDE LEVEL 27 MEQ/L (21-32); CHLORIDE LEVEL 105 MEQ/L (98-107); CREATININE FOR GFR 4.88 MG/DL (0.70-1.30); GLOMERULAR FILTRATION RATE 12.9 (>49); GLUCOSE, FASTING 141 MG/DL (70-100); MAGNESIUM LEVEL 1.6 MG/DL (1.8-2.4); POTASSIUM SERUM 3.8 MEQ/L (3.5-5.1); SODIUM LEVEL 137 MEQ/L (136-145)
[2017-03-08] MEDS: MAG SULF 1GM/100ML (MAG RUN) 1 GM in APPROPRIATE DILUENT 1 EA IV (08:00)
[2017-03-08] MEDS ORDERED: ALLOPURINOL 100 MG TAB PO (09:00)
[2017-03-08] MEDS: HumaLOG INSULIN (NovoLOG) PER UNIT SC (09:20)
[2017-03-08] MEDS: LISINOPRIL 20 MG TAB PO (09:21)
[2017-03-08] MEDS: amLODIPine 10 MG TAB PO (09:21)
[2017-03-08] MEDS: FEBUXOSTAT 40 MG TABLET (ULORIC) PO (09:21)
[2017-03-08] MEDS: METOPROLOL SUCC (TopROL XL) 100MG *XL* TAB PO (09:21)
[2017-03-08] MEDS: predniSONE 20 MG TAB PO (10:03)
[2017-03-08] MEDS: MAGNESIUM OXIDE 400 MG TAB (MAG-OX) PO (10:03)
== END 2017-03-08 11:40 | disposition home or self-care (01) | DRG 247 ==
LOC: M MSPAV 02-25 17:32 → M ED 17:55 → M ED INP 20:38
PROC: 02HV33Z Insertion of Infusion Device into Superior Vena Cava, Percutaneous Approach (ICD-10-PCS; 2017-02-25 15:00)
PROC: 0DN Gastrointestinal System, Release (ICD-10-PCS; principal; 2017-02-25 16:14)
PROC: 5A1D70Z Performance of Urinary Filtration, Intermittent, Less than 6 Hours Per Day (ICD-10-PCS; 2017-02-25 16:14)
PROC: 30253K1 (ICD-10-PCS; 2017-02-25 16:14)
DX: K56.50 Intestinal adhesions [bands], unspecified as to partial versus complete obstruction (principal); E87.0 Hyperosmolality and hypernatremia; E87.2 Acidosis; I12.0 Hypertensive chronic kidney disease with stage 5 chronic kidney disease or end stage renal disease; I48.91 Unspecified atrial fibrillation; N17.9 Acute kidney failure, unspecified; N18.6 End stage renal disease; E86.0 Dehydration; E11.22 Type 2 diabetes mellitus with diabetic chronic kidney disease; E78.5 Hyperlipidemia, unspecified; M10.9 Gout, unspecified; R75 Inconclusive laboratory evidence of human immunodeficiency virus [HIV]; F17.210 Nicotine dependence, cigarettes, uncomplicated; E87.6 Hypokalemia; Z79.4 Long term (current) use of insulin; Z79.01 Long term (current) use of anticoagulants; Z79.899 Other long term (current) drug therapy; Z91.14 Patient's other noncompliance with medication regimen; Z99.2 Dependence on renal dialysis; I16.0 Hypertensive urgency

== ENCOUNTER → 2017-02-24 | Outpatient (CLI) | payer MEDICAID, SELFPAY | LOC: M RAD 09:04 | DX: N18.5 Chronic kidney disease, stage 5 (principal); E11.22 Type 2 diabetes mellitus with diabetic chronic kidney disease; I15.0 Renovascular hypertension | CPT/HCPCS: 76775 ==

== ENCOUNTER → 2017-02-24 | Outpatient (CLI) | payer MEDICAID, SELFPAY ==
[2017-02-24 10:56] LABS: URIC ACID 7.8 MG/DL (3.5-7.2)
[2017-02-25 10:11] LABS: HEPATITIS B CORE ANTIBODY IGG Negative (Negative)
[2017-03-07 00:07] LABS: HLA B5701-1 Negative (.)
== END ==
LOC: M LAB 09:40
DX: M10.9 Gout, unspecified (principal); B20 Human immunodeficiency virus [HIV] disease
CPT/HCPCS: 84550